=== PATIENT | female | born 1990 | race African-American/Black ===

== ENCOUNTER 2023-12-21 10:12 | Emergency (ER) | payer OTHER ==
[~2023-12-21] VITALS: Ht 162.6 cm; Wt 73.5 kg
[2023-12-21 10:16] VITALS: BP 116/63; PULSE 75; RESP 20; TEMP 98.5; O2SAT 100
[2023-12-21] MEDS: ACETAMINOPHEN EXTRA STRENGTH 500 MG TAB PO ONE (11:49)
[2023-12-21] MEDS: BACITRACIN OINT 500 UNITS/GM PKT TP ONE (11:49)
[2023-12-21] MEDS ORDERED: HYDR-5191 PO (12:24)
[2023-12-21 12:46] VITALS: BP 116/80; PULSE 67; O2SAT 100
== END 2023-12-21 12:40 | disposition home or self-care (01) ==
LOC: MED 10:12
DX: S61.412A Laceration without foreign body of left hand, initial encounter (principal); Z79.899 Other long term (current) drug therapy; Z91.040 Latex allergy status; W26.0XXA Contact with knife, initial encounter; Y93.89 Activity, other specified; Y92.89 Other specified places as the place of occurrence of the external cause; Y99.8 Other external cause status
CPT/HCPCS: 73130; 81025; 99283